=== PATIENT | female | born 1950 | race African-American/Black ===

== ENCOUNTER 2016-08-12 21:45 | Inpatient (IN) | payer OTHER ==
[~2016-08-12] VITALS: Ht 177.8 cm; Wt 59.4 kg
[2016-08-12 22:30] VITALS: BP 128/62
[2016-08-12] MEDS ORDERED: IBUPROFEN600 MG ORAL (22:45)
[2016-08-12] MEDS ORDERED: ASPIR 8181 MG ORAL (22:45)
[2016-08-12] MEDS ORDERED: METOPROLOL TART25 MG ORAL (22:45)
[2016-08-12] MEDS ORDERED: HYDROCODON-ACE1 EA13 ORAL (22:53)
[2016-08-12] MEDS ORDERED: METFORMIN HCL500 M1 ORAL (22:53)
[2016-08-12] MEDS ORDERED: DONEPEZIL HCL10 MG ORAL (22:53)
[2016-08-12] MEDS ORDERED: OMEPRAZOLE20 M2 ORAL (22:55)
[2016-08-12] MEDS ORDERED: LORAZEPAM1 MG ORAL (22:55)
[2016-08-12] MEDS ORDERED: METOCLOPRAMIDE H5 M1 ORAL (22:55)
[2016-08-12] MEDS ORDERED: NIFEDIPINE PO (22:55)
[2016-08-12 23:43] LABS: APPEARANCE,URINE CLEAR; KETONES,URINE NEGATIVE (NEGATIVE); LEUKOCYTE ESTERASE ,URINE 1+ (NEGATIVE); NITRITE,URINE NEGATIVE (NEGATIVE); PH,URINE 5 (4.5-8.0); PROTEIN,URINE 1+ (NEGATIVE); UROBILINOGEN,URINE NORMAL MG/DL (0.0-1.0)
[2016-08-13 00:19] LABS: BASOPHILS % (AUTO) 2.5 % (0.0-2.0); EOSINOPHILS % (AUTO) 3.1 % (0.0-3.0); LYMPHOCYTES % (AUTO) 35.4 % (20.0-45.0); MEAN CORPUSCULAR HEMOGLOBIN 28.9 PG (27.0-31.0); MEAN CORPUSCULAR HGB CONC 31.7 G/DL (32.0-36.0); MEAN CORPUSCULAR VOLUME 91 FL (80-99); MEAN PLATELET VOLUME 8.5 FL (6.5-10.1); MONOCYTES % (AUTO) 7.7 % (1.0-10.0); NEUTROPHILS % (AUTO) 51.4 % (45.0-75.0); PLATELET COUNT 215 K/UL (150-450); RED BLOOD COUNT 3.12 M/UL (4.20-5.40); RED CELL DISTRIBUTION WIDTH 14.5 % (11.6-14.8); WHITE BLOOD COUNT 5.7 K/UL (4.8-10.8)
[2016-08-13 00:37] LABS: BACTERIA,URINE FEW /HPF; RBC,URINE 0-2 /HPF (0 - 2); SQUAMOUS EPITHELIAL CELL,UR FEW /LPF (NONE/OCC)
[2016-08-13 00:41] LABS: ALANINE AMINOTRANSFERASE 13 U/L (3-33); ALBUMIN/GLOBULIN RATIO 1.3 (1.0-2.7); ANION GAP 14 (5-15); ASPARTATE AMINO TRANSFERASE 26 U/L (5-40); CALCIUM 8.4 mg/dL (8.6-10.2); CARBON DIOXIDE 21 mEQ/L (20-30); CHLORIDE 111 mEQ/L (98-107); CREATININE 1.6 mg/dL (0.5-0.9); GLOMERULAR FILTRATION RATE 39.3 mL/min (>60); HEMOLYSIS 27; SODIUM 146 mEQ/L (135-145); TOTAL PROTEIN 6.4 g/dL (6.6-8.7)
[2016-08-13 00:44] LABS: TROPONIN I < 0.30 ng/mL (<=0.30)
[2016-08-13 00:53] LABS: CKMB 6.5 ng/mL (< 3.8)
[2016-08-13 01:00] VITALS: BP 148/89
[2016-08-13] MEDS ORDERED: Acetaminophen 500mg (ES) tab ORAL ONE ×2 (01:29→01:45)
--- NOTE | 2016-08-13 01:51 | Emergency Room Report ---
History of Present Illness General Chief Complaint: Abdominal Pain Source: Patient, Family Member Present Illness HPI This is a 66-year-old female with history hypertension and diabetes. She also has a history of gastric bypass. She use to live in the [facility]. Her daughter just move her out here and she has not changed DrJoann jameson. Her daughter noticed that she has increasing swelling to her lower extremity for last couple days. Worse when she walks. Better when she rests. Denies any fever chills denies any chest pain. She had history of gastric bypass has been complaining of abdominal pain and left upper quadrant area. His been ongoing for a while. No workup for it per patient. No nausea no vomiting. Denies any other complaint the Allergies: Coded Allergies: No Known Allergies (Unverified , 08/12/16) Patient History Past Medical History: see triage record, old chart reviewed, HTN Past Surgical History: other Pertinent Family History: none Social History: Denies: smoking Now: No Immunizations: other Reviewed Nursing Documentation: PMH: Agreed, PSxH: Agreed Nursing Documentation-PMH Past Medical History: No History, Except For Hx Cardiac Problems: Yes - CHF Hx Hypertension: Yes Hx Diabetes: Yes Hx Gastrointestinal Problems: Yes - Gastric bypass History Of Psychiatric Problem: Yes - Dementia, Alzheimer's Review of Systems Eye: Denies: blurred vision, eye pain ENT: Denies: ear pain, nose congestion, throat swelling Respiratory: Reports: shortness of breath, Denies: cough Cardiovascular: Denies: chest pain, palpitations Gastrointestinal: Denies: abdominal pain, diarrhea, nausea, vomiting Musculoskeletal: Denies: back pain, joint pain Skin: Denies: rash Neurological: Denies: headache, numbness Endocrine: Denies: increased thirst, increased urine Hematologic/Lymphatic: Denies: easy bruising All Other Systems: negative except mentioned in HPI Physical Exam Vital Signs Date Time Temp Pulse Resp B/P Pulse Ox O2 Delivery O2 Flow Rate FiO2 08/12/16 21:53 97.2 94 28 153/70 100 Room Air diagnosed with hypertension Sp02 EP Interpretation: reviewed, normal General Appearance: well appearing, no apparent distress, alert Head: normocephalic, atraumatic Eyes: bilateral eye EOMI, bilateral eye PERRL ENT: hearing grossly normal, normal pharynx Neck: full range of motion, supple, no meningismus Respiratory: chest non-tender, lungs clear, normal breath sounds Cardiovascular #1: regular rate, rhythm, no murmur Gastrointestinal: normal bowel sounds, non tender, no mass, no organomegaly, no bruit, non-distended Musculoskeletal: back normal, gait/station normal, normal range of motion, swelling - 2+ edema Neurologic: alert, oriented x3 Psychiatric: mood/affect normal Skin: warm/dry Medical Decision Making Diagnostic Impression: Primary Impression: CHF exacerbation Qualified Codes: I50.9 - Heart failure, unspecified Additional Impressions: Hypertension Qualified Codes: I10 - Essential (primary) hypertension Abdominal pain Qualified Codes: R10.9 - Unspecified abdominal pain Anemia Qualified Codes: D64.9 - Anemia, unspecified Chronic kidney disease Qualified Codes: N18.9 - Chronic kidney disease, unspecified ER Course Patient presents with new onset versus exacerbation CHF. She is on any Lasix. She diuresed well. She went to the restroom several times her ready. Notice of ACS, PE, dissection. No evidence of obstruction from her gastric bypass. Lab Results Impression labs unremarkable EKG Diagnostic Results Rate: normal Rhythm: NSR ST Segments: no acute changes Rhythm Strip Diag. Results EP Interpretation: yes Rhythm: NSR, no PVC's, no ectopy Chest X-Ray Diagnostic Results EP Interpretation: Yes Findings: no consolidation, no effusion, no pneumothorax, other - fluid in minor fissure Number of Views: 1 Last Vital Signs Date Time Temp Pulse Resp B/P Pulse Ox O2 Delivery O2 Flow Rate FiO2 08/12/16 22:30 97.2 90 20 128/62 96 Room Air Status: improved Disposition: ADMITTED INPATIENT Condition: Serious Referrals: NOT CHOSEN ANDREY/,REFERRING (PCP) XIOMARA ORR M.D. Aug 13, 2016 01:51
[2016-08-13 03:07] VITALS: BP 163/107
[2016-08-13] MEDS ORDERED: Miralax 17gm pkt ORAL PRN (07:00)
[2016-08-13] MEDS ORDERED: DuoNeb 0.5-3(2.5)mg/3ml neb HHN PRN (07:00)
[2016-08-13 08:00] VITALS: BP 157/89
--- NOTE | 2016-08-13 08:49 | Diagnostic Imaging Report ---
Indication: Abdominal pain Technique: Continuous helical transaxial imaging of the abdomen and pelvis was obtained from the lung bases to the pubic symphysis. No intravenous contrast was administered. Coronal 2-D reformats were also obtained. Total Dose length Product (DLP): [address] Dose Index Volume (CTDIvol): 12.7 mGy Comparison: none Findings: There is generalized anasarca noted. Minimal basilar atelectasis demonstrated. Extensive surgical clips are demonstrated in the upper abdomen. Some of these involve the stomach, probably representing gastric bypass. Exam is limited by the absence of intravenous and oral contrast material. There is no obvious evidence for bowel obstruction. No free air or free fluid is identified. Vascular calcifications are present. The appendix is seen and appears normal. The uterus is identified. Urinary bladder is grossly unremarkable. Moderate stool noted. Abdominoplasty has been done in the ventral abdominal wall. Some calcifications are noted within the liver. There is no obvious hydronephrosis. Impression: Limited exam as discussed above. Status post gastric surgery, likely bypass. Status post abdominoplasty in the ventral abdominal wall. Atherosclerotic vascular disease Moderate stool Anasarca Normal appendix [facility] has communicated the preliminary results to the Emergency Department. Their findings are largely concordant with this report. The CT scanner at [facility] is accredited by the [employer] and the scans are performed using protocols designed to limit radiation exposure to as low as reasonably achievable to attain images of sufficient resolution adequate for diagnostic evaluation.
[2016-08-13] MEDS ORDERED: Metoprolol 25mg tab ORAL SCH (09:00)
[2016-08-13] MEDS ORDERED: Heparin 5000 units/ml inj SUBQ SCH (09:00)
--- NOTE | 2016-08-13 09:27 | Consultation ---
Consult Note Consult Note asked to eval for high Cr Chief Complaint: Abdominal Pain HPI This is a 66-year-old female with history hypertension and diabetes. She also has a history of gastric bypass. She use to live in the [facility]. Her daughter just move her out here and she has not changed Dr. jameson. Her daughter noticed that she has increasing swelling to her lower extremity for last couple days. Worse when she walks. Better when she rests. Denies any fever chills denies any chest pain. She had history of gastric bypass has been complaining of abdominal pain and left upper quadrant area. His been ongoing for a while. No workup for it per patient. No nausea no vomiting. Denies any other complaint the Reviewed Nursing Documentation: PMH: Agreed, PSxH: Agreed Past Medical History: No History, Except For Hx Cardiac Problems: Yes - CHF Hx Hypertension: Yes Hx Diabetes: Yes Hx Gastrointestinal Problems: Yes - Gastric bypass History Of Psychiatric Problem: Yes - Dementia, Alzheimer's Patient interviewed, examined- data reviewed . Assessment/Plan Renal failure, possibly mixed, acute ( dehydration, pre renal , medications like Motrin...) superimposed on chronic ( Dm and HTN ) Anemia CHF HTN DM Cognition decline Plan: Optimize cardiac status 2D Echo Monitor renal parameters avoid Nephrotoxics Anemia abarca keep BP and BS in check Urine studies EMMANUEL BUTLER Aug 13, 2016 09:27
[2016-08-13 10:08] LABS: HEMOGLOBIN A1C 7.1 % (< 6.0); PATH BLOOD SMEAR/OMC SENT TO PATHOLOGIST; PROTHROMBIN TIME 10.3 SEC (9.30-11.50)
[2016-08-13 10:14] LABS: CHOLESTEROL 273 mg/dL (< 200)
[2016-08-13 10:15] LABS: IRON 45 ug/dL (37-145); TOTAL IRON BINDING CAPACITY 327 ug/dL (250-400)
[2016-08-13 10:18] LABS: ALANINE AMINOTRANSFERASE 12 U/L (3-33); ALBUMIN/GLOBULIN RATIO 1.2 (1.0-2.7); ANION GAP 17 (5-15); ASPARTATE AMINO TRANSFERASE 21 U/L (5-40); CALCIUM 8.5 mg/dL (8.6-10.2); CARBON DIOXIDE 23 mEQ/L (20-30); CHLORIDE 100 mEQ/L (98-107); CREATININE 1.2 mg/dL (0.5-0.9); GLOMERULAR FILTRATION RATE 54.9 mL/min (>60); HEMOLYSIS 0; MAGNESIUM 1.5 mg/dL (1.7-2.5); PHOSPHORUS 2.7 mg/dL (2.5-4.8); POTASSIUM 4.2 mEQ/L (3.4-4.9); SODIUM 140 mEQ/L (135-145); TOTAL PROTEIN 6.3 g/dL (6.6-8.7); URIC ACID 5.4 mg/dL (3.0-7.5)
[2016-08-13 10:19] LABS: LACTATE DEHYDROGENASE 251 U/L (135-230)
[2016-08-13 10:22] LABS: CHOLESTEROL/HDL RATIO 2.4 (3.3-4.4); LDL CHOLESTEROL (CALC.) 149 mg/dL (60-99)
[2016-08-13 10:25] LABS: FERRITIN 12 ng/mL (13-150); THYROID STIMULATING HORMONE 0.799 uIU/mL (0.300-4.500)
[2016-08-13 10:40] LABS: IRON 45 ug/dL (37-145); TOTAL IRON BINDING CAPACITY 327 ug/dL (250-400)
[2016-08-13 10:57] LABS: ERYTHROCYTE SEDIMENTATION RATE 42 MM/HR (0-30); TROPONIN I < 0.30 ng/mL (<=0.30)
[2016-08-13 11:00] LABS: RETICULOCYTE COUNT 1.1 % (0.0-2.0)
[2016-08-13] MEDS ORDERED: NovoLOG Insulin Flexpen SUBQ SCH (11:30)
[2016-08-13 12:00] VITALS: BP 173/81
--- NOTE | 2016-08-13 13:06 | Cardiology Report ---
APPROVED REPORT EKG Measurement Heart [id number] Normal sinus rhythm Low voltage QRS Cannot rule out Anterior infarct, age undetermined Abnormal ECG
--- NOTE | 2016-08-13 14:02 | Consultation ---
History of Present Illness General Date patient seen: Aug 13, 2016 Chief Complaint: Abdominal Pain Referring physician: Dr. Barboza Reason for Consultation: dyspnea Present Illness HPI 66-year-old female with history hypertension and diabetes, gastric bypass was noticed to have increasing swelling to her lower extremity for last couple days. Pt looks chronically ill and cachectic with severe peripheral edema. NO cough, positive orthopnea Allergies: Coded Allergies: No Known Allergies (Unverified , 08/12/16) Medication History Scheduled Aspirin* (Aspir 81*), 81 MG ORAL DAILY, (Reported) Donepezil Hcl* (Donepezil Hcl*), 10 MG ORAL BEDTIME, (Reported) Hydrocodone Bit/Acetaminophen 10-325* (Hydrocodon-Acetaminophn 10-325*), 1 TAB ORAL Q6H, (Reported) Ibuprofen* (Motrin*), 600 MG ORAL THREE TIMES A DAY, (Reported) Lorazepam* (Lorazepam*), 1 MG ORAL THREE TIMES A DAY, (Reported) Metformin Hcl* (Metformin Hcl*), 500 MG ORAL TWICE A DAY, (Reported) Metoclopramide Hcl* (Metoclopramide Hcl*), 10 MG ORAL EVERY 6 HOURS, (Reported) Metoprolol Tartrate* (Metoprolol Tartrate*), 25 MG ORAL EVERY 12 HOURS, ( Reported) Omeprazole (Omeprazole), 20 MG ORAL DAILY, (Reported) [Nifedipine], 30 MG PO DAILY, (Reported) Patient History Healthcare decision maker pt alert and oriented x4 Resuscitation status Full Code Advanced Directive on File Past Medical/Surgical History Past Medical/Surgical History: (1) Chronic kidney disease (2) Abdominal pain (3) Anemia (4) Hypertension Review of Systems All Other Systems: negative except mentioned in HPI Physical Exam General Appearance: cachetic Lines, tubes and drains: peripheral HEENT: normocephalic, atraumatic Neck: non-tender, normal alignment Respiratory/Chest: chest wall non-tender, lungs clear Breasts: no masses Cardiovascular/Chest: normal peripheral pulses, no JVD Abdomen: normal bowel sounds, non tender Extremities: normal range of motion Skin Exam: normal pigmentation Last 24 Hour Vital Signs Date Time Temp Pulse Resp B/P Pulse Ox O2 Delivery O2 Flow Rate FiO2 08/13/16 12:00 97.5 81 18 173/81 100 Room Air 08/13/16 10:06 68 157/89 08/13/16 10:02 68 157/89 08/13/16 08:00 96.4 68 18 157/89 100 Room Air 08/13/16 03:30 97.2 67 16 163/107 100 Room Air 08/13/16 03:07 97.2 67 16 163/107 100 Room Air 08/13/16 01:00 97.2 69 18 148/89 96 Room Air 08/12/16 22:30 97.2 90 20 128/62 96 Room Air 08/12/16 21:53 97.2 94 28 153/70 100 Room Air Laboratory Tests Test 08/12/16 23:35 08/12/16 23:58 08/13/16 09:35 Urine Color Pale yellow Urine Appearance Clear Urine pH 5 (4.5-8.0) Urine Specific [place] 1.015 (1.005-1.035) Urine Protein 1+ (NEGATIVE) H Urine Glucose (UA) 1+ (NEGATIVE) H Urine Ketones Negative (NEGATIVE) Urine Occult Blood Negative (NEGATIVE) Urine Nitrite Negative (NEGATIVE) Urine Bilirubin Negative (NEGATIVE) Urine Urobilinogen Normal MG/DL (0.0-1.0) Urine Leukocyte Esterase 1+ (NEGATIVE) H Urine RBC 0-2 /HPF (0 - 2) Urine WBC 5-10 /HPF (0 - 2) H Urine Squamous Epithelial Cells Few /LPF (NONE/OCC) Urine Bacteria Few /HPF (NONE) White Blood Count 5.7 K/UL (4.8-10.8) Red Blood Count 3.12 M/UL (4.20-5.40) L Hemoglobin 9.0 G/DL (12.0-16.0) L Hematocrit 28.5 % (37.0-47.0) L Mean Corpuscular Volume 91 FL (80-99) Mean Corpuscular Hemoglobin 28.9 PG (27.0-31.0) Mean Corpuscular Hemoglobin Concent 31.7 G/DL (32.0-36.0) L Red Cell Distribution Width 14.5 % (11.6-14.8) Platelet Count 215 K/UL (150-450) Mean Platelet Volume 8.5 FL (6.5-10.1) Neutrophils (%) (Auto) 51.4 % (45.0-75.0) Lymphocytes (%) (Auto) 35.4 % (20.0-45.0) Monocytes (%) (Auto) 7.7 % (1.0-10.0) Eosinophils (%) (Auto) 3.1 % (0.0-3.0) H Basophils (%) (Auto) 2.5 % (0.0-2.0) H Sodium Level 146 mEQ/L (135-145) H 140 mEQ/L (135-145) Potassium Level 4.0 mEQ/L (3.4-4.9) 4.2 mEQ/L (3.4-4.9) Chloride Level 111 mEQ/L (98-107) H 100 mEQ/L (98-107) Carbon Dioxide Level 21 mEQ/L (20-30) 23 mEQ/L (20-30) Anion Gap 14 (5-15) 17 (5-15) H Blood Urea Nitrogen 34 mg/dL (7-23) H 27 mg/dL (7-23) H Creatinine 1.6 mg/dL (0.5-0.9) H 1.2 mg/dL (0.5-0.9) H Estimat Glomerular Filtration Rate 39.3 mL/min (>60) 54.9 mL/min (>60) Glucose Level 97 mg/dL (74-106) 235 mg/dL (74-106) #H Calcium Level 8.4 mg/dL (8.6-10.2) L 8.5 mg/dL (8.6-10.2) L Total Bilirubin < 0.2 mg/dL (0.0-1.2) 0.2 mg/dL (0.0-1.2) Aspartate Amino Transf (AST/SGOT) 26 U/L (5-40) 21 U/L (5-40) Alanine Aminotransferase (ALT/SGPT) 13 U/L (3-33) 12 U/L (3-33) Alkaline Phosphatase 70 U/L (35-104) 64 U/L (35-104) Total Creatine Kinase 386 U/L (26-140) H 354 U/L (26-140) H Creatine Kinase MB 6.5 ng/mL (< 3.8) H Creatine Kinase MB Relative Index 1.6 Troponin I < 0.30 ng/mL (<=0.30) < 0.30 ng/mL (<=0.30) Pro-B-Type Natriuretic Peptide 1426 pg/mL (0-125) H Total Protein 6.4 g/dL (6.6-8.7) L 6.3 g/dL (6.6-8.7) L Albumin 3.7 g/dL (3.5-5.2) 3.5 g/dL (3.5-5.2) Globulin 2.7 g/dL 2.8 g/dL Albumin/Globulin Ratio 1.3 (1.0-2.7) 1.2 (1.0-2.7) Erythrocyte Sedimentation Rate 42 MM/HR (0-30) H Reticulocyte Count 1.1 % (0.0-2.0) Prothrombin Time 10.3 SEC (9.30-11.50) Prothromb Time International Ratio 1.0 (0.9-1.1) Activated Partial Thromboplast Time 25 SEC (23-33) Hemoglobin A1c 7.1 % (< 6.0) H Plasma/Serum Osmolality Pending Uric Acid 5.4 mg/dL (3.0-7.5) Phosphorus Level 2.7 mg/dL (2.5-4.8) Magnesium Level 1.5 mg/dL (1.7-2.5) L Iron Level 45 ug/dL (37-145) Total Iron Binding Capacity 327 ug/dL (250-400) Percent Iron Saturation 14 % (15-50) L Unsaturated Iron Binding 282 ug/dL (112-346) Ferritin 12 ng/mL (13-150) L Lactate Dehydrogenase 251 U/L (135-230) H Triglycerides Level 45 mg/dL (< 150) Cholesterol Level 273 mg/dL (< 200) H LDL Cholesterol 149 mg/dL (60-99) H HDL Cholesterol 115 mg/dL (> 60) H Cholesterol/HDL Ratio 2.4 (3.3-4.4) L Carcinoembryonic Antigen 3.0 ng/mL Vitamin B12 Level 504 pg/mL (211-946) Folate Pending Thyroid Stimulating Hormone (TSH) 0.799 uIU/mL (0.300-4.500) Free Thyroxine 0.85 ng/dL (0.86-1.85) L Free Triiodothyronine Pending Cortisol Pending Height (Feet): 5 Height (Inches): 10.00 Weight (Pounds): 131 Medications Current Medications Medications (Trade) Dose Ordered Sig/Bret Route PRN Reason Start Time Stop Time Status Last Admin Dose Admin Acetaminophen (Tylenol) 650 mg Q4H PRN ORAL Fever 08/13/16 07:00 09/12/16 06:59 08/13/16 10:08 Albuterol/ Ipratropium (DuoNeb 0.5-3(2.5)mg/3ml) 3 ml EVERY 4 HOURS PRN HHN Shortness of Breath 08/13/16 07:00 08/18/16 06:59 Amlodipine Besylate (Norvasc) 2.5 mg DAILY ORAL 08/13/16 10:00 09/12/16 09:59 08/13/16 10:06 Dextrose (Dextrose 50%) STAT PRN IV Hypoglycemia 08/13/16 07:00 09/12/16 06:59 Donepezil HCl (Aricept) 10 mg BEDTIME ORAL 08/13/16 21:00 09/12/16 20:59 Furosemide (Lasix) 40 mg EVERY 12 HOURS IV 08/13/16 10:00 09/12/16 09:59 08/13/16 10:05 Heparin Sodium (Porcine) (Heparin 5000 units/ml) 5,000 units EVERY 12 HOURS SUBQ 08/13/16 09:00 09/12/16 08:59 08/13/16 10:09 Insulin Aspart (NovoLOG) BEFORE MEALS AND HS SUBQ 08/13/16 11:30 09/12/16 11:29 08/13/16 12:53 Metoprolol Tartrate (Lopressor) 25 mg EVERY 12 HOURS ORAL 08/13/16 09:00 09/12/16 08:59 08/13/16 10:02 Ondansetron HCl (Zofran) 4 mg Q6H PRN IVP Nausea & Vomiting 08/13/16 07:00 09/12/16 06:59 Pantoprazole (Protonix) 40 mg DAILY ORAL 08/13/16 10:00 09/12/16 09:59 08/13/16 10:06 Polyethylene Glycol (Miralax) 17 gm DAILYPRN PRN ORAL Constipation 08/13/16 07:00 09/12/16 06:59 Temazepam (Restoril) 15 mg HSPRN PRN ORAL Insomnia 08/13/16 07:00 08/20/16 06:59 Assessment/Plan Problem List: (1) Anasarca ICD Codes: R60.1 - Generalized edema SNOMED: 020786260, 910669117 (2) Orthopnea ICD Codes: R06.01 - Orthopnea SNOMED: 65578141 (3) Peripheral edema ICD Codes: R60.9 - Edema, unspecified SNOMED: 429965259 (4) Dyspnea ICD Codes: R06.00 - Dyspnea, unspecified SNOMED: 275660094 (5) H/O gastric bypass ICD Codes: Z98.890 - Other specified postprocedural states SNOMED: 72234562, 69026524, 674819974 Assessment/Plan diuretics echo anemia w/u stool for OB respiratory treatment watch intake and output. YOHAN WOOTEN Aug 13, 2016 14:02
[2016-08-13 14:28] VITALS: BP 150/67
--- NOTE | 2016-08-13 15:24 | History & Physical ---
History and Physical History & Physicial job # [id number] Dustin Barboza MD Aug 13, 2016 15:24
--- NOTE | 2016-08-13 16:37 | Diagnostic Imaging Report ---
Indication: Chest Pain Comparison: None A single view chest radiograph was obtained. Findings: Cardiomediastinal appearance is within normal limits for age. Pulmonary vascularity is appropriate. The diaphragmatic contour is smooth and costophrenic angles are sharp. No pleural effusions are identified. The bones are unremarkable. Impression: No acute findings
--- NOTE | 2016-08-13 17:25 | Diagnostic Imaging Report ---
APPROVED REPORT CPT Code: 57988 Present Symptoms Lower Extremity Pain: Bilateral BILATERAL: Imaging reveals a patent deep venous system bilaterally. There is no evidence of thrombus within the femoral, popliteal or tibial segments. The greater saphenous veins are also within normal limits. Doppler indicates normal spontaneous flow within these segments.
[2016-08-13] MEDS ORDERED: Donepezil 10mg tab ORAL SCH (21:00)
--- NOTE | 2016-08-14 00:37 | History and Physical Report ---
DATE OF ADMISSION: 08/13/2016 CHIEF COMPLAINT: Shortness of breath. HISTORY OF PRESENT ILLNESS: This is a 66-year-old female with a past medical history significant for hypertension, diabetes type 2, morbid obesity, and history of gastric bypass surgery, who was presented to the hospital complaining about shortness of breath and increased swelling in her lower extremity. For the past couple days, the patient looked chronically ill, cachectic and severe peripheral edema. Denies any cough. Positive orthopnea. Shortly after initial evaluation in the emergency room, the patient was admitted in the hospital with acute CHF exacerbation as well as abdominal pain and anemia with chronic kidney disease. PAST MEDICAL HISTORY/PAST SURGICAL HISTORY: As above. History of chronic kidney disease, hypertension, diabetes type 2, and history of gastric bypass surgery. MEDICATIONS: Medications at home are significant for aspirin, Aricept, [place], ibuprofen, Ativan, metformin, Reglan, metoprolol, omeprazole, and nifedipine. ALLERGIES: No known drug allergy. SOCIAL HISTORY: Unknown. FAMILY HISTORY: Noncontributory. REVIEW OF SYSTEMS: Mostly as above. PHYSICAL EXAMINATION: VITAL SIGNS: On admission, temperature 97.5 degrees, respirations 18, pulse 81, and blood pressure 173/81, repeat one was 153/70. GENERAL: The patient is awake and responsive, in no acute distress, and cachectic. HEAD AND NECK: Pupils are equal and reactive to light. Anicteric. Neck was supple. No JVD. LUNGS: Good air entry. ABDOMEN: Soft. No rebound tenderness. EXTREMITIES: No cyanosis or clubbing. Bilateral lower extremity edema was noted. NEUROLOGIC: Cranial nerves II through XII are grossly intact. The patient is moving all extremities. LABORATORY AND DIAGNOSTIC DATA: On admission from the ER, WBC of 5.7, hemoglobin 9.0, hematocrit 28, and platelets 215,000. Sodium 140, potassium 4.2, chloride 100, bicarbonate 23, BUN 27, creatinine 1.2, and glucose is 235. Magnesium is 1.5. Total CK is at 354. CT of the abdomen and pelvic was noted to be status post gastric bypass surgery with abdominoplasty with ventral abdominal wall, atherosclerotic vessel disease, moderate stool, anasarca, and normal appendix. ASSESSMENT: 1. Anasarca. 2. Pedal edema. 3. Hypertension. 4. Diabetes type 2. 5. Orthopnea. 6. Peripheral edema. 7. Morbid obesity status post gastric bypass surgery. PLAN: Admit the patient to telemetry. We will follow up with the diuretics and 2D echo. Stool for occult blood. Anemia workup. Dr. Torrez, Pulmonary Critical Care and Dr. Pimentel from Nephrology. The patient unfortunately wants to go to different hospital and sign against medical advice at this time. Dustin Barboza M.D. DR: SHELLY JOB#: [id number] CC:
--- NOTE | 2016-08-16 14:43 | Discharge Summary ---
Discharge Summary Hospital Course Date of Admission Aug 13, 2016 at 01:18 Date of Discharge Aug 13, 2016 at 14:58 Admitting Diagnosis Congestive Heart Failure HPI Maureen Whiteside is a 66 year old female who was admitted on Aug 13, 2016 at 01 :18 for Congestive Heart Failure Hospital Course dc summary #[id number] Discharge Discharge Disposition Patient signed AMA Discharge Diagnoses: Discharge Instructions Discharge Instructions Special Instructions I have been assigned to complete a D/C Summary on this account. I was not involved in the patient management Soraya Hooker NP (Vanchtein) August 16, 2016 14:43
--- NOTE | 2016-08-17 05:28 | Discharge Summary 2 SIG ---
DATE OF ADMISSION: 08/13/2016 DATE OF SIGNING AGAINST MEDICAL ADVISE : 08/13/2016 REASON FOR ADMISSION: 66-year-old female with a history of hypertension, diabetes and gastric bypass, who used to live in [facility] moved to [facility] by her daughter, but did not get to a medical doctor yet. The daughter noted increased swelling to the lower extremities for the last couple of days worse with walking. She also noted that the edema is better when the patient is resting. She denied fever, chills, and chest pain. She reported history of gastric bypass, but complaining of lower abdominal pain in the left upper quadrant was ongoing for a while. No workup. No nausea. No vomiting. No melena. No hematemesis. No hematochezia. Workup in the emergency room revealed troponin was negative. EKG was normal sinus rhythm. No ischemic changes. Chest x-ray was stable. Hemoglobin was 9.0, hematocrit 28.5, BUN 27, and creatinine 1.2. ProBNP is 1426. The patient was admitted for further management. In the emergency room, the patient undergone CT of the abdomen and pelvis, as well which revealed generalized anasarca. Minimal bibasilar atelectasis. Extensive surgical clips in the upper abdomen. Some of them involving the stomach, probably because of gastric bypass. No obvious evidence of bowel obstruction. No free air or free fluid was identified. Appendix was seen and appeared normal. The uterus was identified. Urinary bladder was grossly unremarkable. Moderate stool noted. Abdominoplasty had been done in the ventral abdominal wall. No obvious hydronephrosis. The patient was admitted for further management. ADMITTING DIAGNOSES: 1. Anasarca. 2. Peripheral lower extremity edema. 3. Possible congestive heart failure exacerbation. 4. Hypertension. 5. Diabetes. 6. Abdominal pain. 7. Chronic kidney disease. 8. Anemia. 9. History of gastric bypass. 10. Cognitive decline. HOSPITAL COURSE: The patient was admitted to telemetry. Serial troponin x2 were negative. EKG revealed normal sinus rhythm. No ischemic changes. Thus, the patient was ruled out for acute MD. A 2D echo noted. Renal and Pulmonary consults was requested. Per Nephrology, avoid nephrotoxins. The patient was started on diuresis, intake and output, renal parameters and electrolytes were closely monitored. The patient was able to diurese well. Anemia workup revealed stable iron panel. Stool OB was pending. Lipid panel revealed elevated total cholesterol and LDL. Total cholesterol - 273 and LDL - 149. Blood sugar was managed with sliding scale of insulin. Blood pressure was managed with current medication regimen, remains stable. The daughter voiced the desire for patient to go to [facility]. However, when the clinical case manager contacted [facility], they stated that they have limited beds at this time and they are holding them for ER. They do not take direct admission as well. The only direct admission they take if patient admitted from [facility]. The patient's daughter was made aware of that information. She decided to sign against medical advice. Risks and consequences of signing against medical advice were explained to the patient and her daughter. The daughter insisted on signing AMA. DISCHARGE DIAGNOSES: 1. Anasarca. 2. Possible congestive heart failure exacerbation. 3. Hypertension. 4. Diabetes. 5. Hypercholesteremia. 6. Abdominal pain. 7. Chronic kidney disease. 8. Anemia. 9. Cognitive decline. 10. History of gastric bypass. Dustin Barboza M.D. I have been assigned to dictate discharge summary on this account and I was not involved in the patient's management. Soraya OconnellGuthrie Corning HospitalCiro N.PJoann DR: ARGELIA JOB#: [id number] CC: LIBAN
[2016-08-17 08:37] LABS: CORTISOL LC 23.2 ug/dL (.); FREE TRIIODOTHYRONINE 1.7 pg/mL (2.0-4.4)
--- NOTE | 2016-08-18 15:59 | Cardiology Report ---
APPROVED REPORT EXAM: Two-dimensional and M-mode echocardiogram with Doppler and color Doppler. INDICATION LV function M-Mode DIMENSIONS IVSd0.8 (0.7-1.1cm)Left Atrium (MM)4.2 (1.6-4.0cm) LVDd3.7 (3.5-5.6cm)Aortic Root2.8 (2.0-3.7cm) IVSs1.8 cm LVDs2.0 (2.5-4.0cm) PWs2.0 cm Normal left ventricular chamber size, systolic function and wall motion. Left ventricular ejection fraction estimated to be 65 %. Mild left ventricular hypertrophy. Anterior Echo-free space, may be due to pericardial fat or effusion. Mild left atrial enlargement. Right cardiac chamber sizes are within normal limits. Focal aortic valve sclerosis with adequate cusp excursion. Thickened mitral valve leaflets with normal excursion. Mitral annulus and aortic root calcification. Pulmonic valve not well visualized. Normal tricuspid valve structure. IVC at normal size with physiologic collapse. A color flow and spectral Doppler study was performed and revealed: Mild mitral regurgitation. Mitral diastolic velocities suggest reduced left ventricular relaxation c/w mild LV diastolic dysfunction (Grade I ). Moderate tricuspid regurgitation. Tricuspid systolic velocities suggests peak right ventricular systolic pressure of 49 mmHg, consistent with moderate pulmonary hypertension. Mild pulmonic regurgitation present.
== END 2016-08-13 14:58 | disposition left against medical advice (07) | DRG 194 ==
LOC: EMR 22:10 → 2E 08-13 01:18 → EDBEDREQ 08-13 02:06 → 2E 08-13 03:42
DX: I50.9 Heart failure, unspecified (principal); N17.9 Acute kidney failure, unspecified; I12.9 Hypertensive chronic kidney disease with stage 1 through stage 4 chronic kidney disease, or unspecified chronic kidney disease; E11.9 Type 2 diabetes mellitus without complications; E78.00 Pure hypercholesterolemia, unspecified; D64.9 Anemia, unspecified; R10.9 Unspecified abdominal pain; N18.9 Chronic kidney disease, unspecified; Z98.84 Bariatric surgery status
CPT/HCPCS: 36415; 71010; 74176; 80053; 80061; 81003; 82378; 82533; 82550; 82553; 82607; 82728; 82746; 82962; 83036; 83540; 83550; 83615; 83735; 83880; 83930; 84100; 84439; 84443; 84481; 84484; 84550; 85025; 85044; 85060; 85610; 85651; 85730; 93005; 93306; 93970; J1815